=== PATIENT | female | born 1975 | race African-American/Black ===

== ENCOUNTER 2016-07-15 05:29 | Observation (INO) | payer OTHER ==
--- NOTE | ~2016-07-15 | A ---
[facility] Nutrition Therapy DATE: 07/16/16 Patient: OFELIA CAGE Physician: MORCAR Address: [address] [place] [address] Room/Bed: [address] [place] [address], Zip: [place] [address] Admit Date: 07/15/16 Date of : [birth year] Height: 5 5 Weight: 111 50.6 NUTRITIONAL ASSESSMENT: REASON: LOW BMI PT IS 40 Y.O. FEMALE ADMITTED FOR STOMACH PAIN AFTER GALLBLADDER SURGERY PMH: RECENT CHOLECYSTECTOMY, SEIZURE DISORDER, DRUG ABUSE Anthropometrics: 5'5", WT: 110# (PER PT) (50 KG), BMI: 18.3, 88%IBW Labs: K+:3.0, CA: 7.6, ALB: 3.3, ALT: 8 Meds: PROTONIX, KCL, PHENERGAN I/O & Bowel function: 4185/1000 Skin Integrity: NO KNOWN SKIN ISSUES Estimated Nutrition Needs: INCREASED NUTRIENT NEEDS 2' WEIGHT LOSS NOTED, DECREASED PO INTAKE AND APPETITE, CURRENT CONDITION Assessment: CHART REVIEWED AND EVENTS NOTED. PT SEEN FOR LOW BMI. PT CONFIRMED DECREASED PO INTAKE 2' DECREASED APPETITE D/T N/V/D/ABD PAIN SINCE HER MOST RECENT CHOLECYSTECTOMY. PT REPORTS LOSING ~16# PAST 2-3 WEEKS/SEVERE WEIGHT LOSS NOTED! THIS RD ENCOURAGED SLOW GRADUAL PO INTAKE + SMALL FREQUENT MEALS + SUPPLEMENT INTAKE, PT AGREED TO ENSURE SHAKES BID, RD WILL ORDER. PT REPORTED NO DIET QUESTIONS AT THIS TIME. RD TO FOLLOW. SEE RECOMMENDATIONS BELOW. Dx: INADEQUATE NUTRIENT INTAKE R/T DX, CURRENT CONDITION, N/V/D AEB PT REPORT ABOVE, SEVERE 16# WEIGHT LOSS NOTED IN PAST 2-3 WEEKS. Intervention: 1. LOW FIBER DIET 2. ENSURE SHAKES BID Monitoring, Evaluation and Goals: 1. PO INTAKE; PROVIDE AND CONSUME ADEQUATE NUTRITION W/NO C/O N/V/D (PO>50%) 2. WEIGHTS; PREVENT FURTHER UNINTENTIONAL WEIGHT LOSS 3. LABS; WNL 4. GI; PROMOTE REGULAR GI FUNCTION MONITOR: -PO INTAKE/APPETITE -WEIGHTS [facility] Nutrition Therapy DATE: 07/16/16 Patient: OFELIA CAGE Physician: DARON Address: [address] [place] [address] Room/Bed: [address] [place] [address], Zip: [place] [address] Admit Date: 07/15/16 Date of : [birth year] Height: 5 5 Weight: 111 50.6 -SUPPLEMENT INTAKE Recommendations: 1. ORDER VANILLA ENSURE SHAKES BID W/MEALS 2. RECOMMEND TO ADD LOW FAT TO CURRENT DIET ORDER -ONCE N/V/D/ABD PAIN SUBSIDES, PLEASE ELIMINATE LOW FIBER OPTION 3. ENCOURAGE ADEQUATE KCAL, PROTEIN AND FLUID INTAKE RD WILL F/U PER PROTOCOL PT IS MODERATELY COMPROMISED Respectfully, BIBI PATEL MS, RD, LD [facility] cc: client file
--- NOTE | ~2016-07-15 | CR72 ---
[facility] A Service of [facility] & [facility] RADIOLOGY TEXT RESULTS PATIENT: OFELIA CAGE LOCATION: [facility] : [birth year] UNIT #: [id number] AGE: [address]: Elpidio Waggoner MD SEX: F ORDER DR: [id number] [facility] [address] [place], [place] [address] [id number] I MR#: [id number] Acc #: [id number] NAME: OFELIA CAGE : 1975 SEX: F STUDY DATE/TIME: 07/15/2016 05:26 [facility] 02692 STUDY DESCRIPTION: CR Chest Single View Portable Attending Physician: Elpidio Waggoner M.D. Ordering Physician: Katelyn Todd A.P.R.N. Primary Care Physician: [facility] MEDICAL IMAGING REPORT This report is preliminary unless electronic signature is present EXAM Portable chest, 07/15 at 05:26. INDICATIONS Ongoing nausea with vomiting and diarrhea, worse over the last 2 days. Flu-like symptoms as well. COMPARISON 07/05/2016 FINDINGS A single AP portable view of the chest shows both lungs to be clear. The heart is normal in size. The mediastinal contour is normal. No significant bone abnormalities are seen. IMPRESSION Normal portable chest. Dictated by... Kar Ugarte Jr., M.D. THIS IS AN ELECTRONICALLY VERIFIED REPORT Kar Ugarte Jr., M.D. at 07/18/2016 7:21 AM DAPHNE/megan TD: 07/15/2016 08:45 JOB #: [id number] MEDICAL IMAGING REPORT COPY
--- NOTE | ~2016-07-15 | US6 ---
[facility] A Service of [facility] RADIOLOGY TEXT RESULTS PATIENT: OFELIA CAGE LOCATION: C3A 332-01 : 79 UNIT #: [id number] AGE: [address]: Elpidio Waggoner MD SEX: F ORDER DR: [id number] [facility] [address] [place], [place] [address] [id number] I MR#: [id number] Acc #: [id number] NAME: OFELIA CAGE : 1975 SEX: F STUDY DATE/TIME: 07/15/2016 10:42 UNIT: [facility] ROOM: 66856 STUDY DESCRIPTION: US Abdominal Limited Attending Physician: Elpidio Waggoner M.D. Ordering Physician: Elpidio Waggoner M.D. Primary Care Physician: [facility] MEDICAL IMAGING REPORT This report is preliminary unless electronic signature is present EXAM Right upper quadrant abdominal ultrasound. INDICATIONS Unexplained weight loss of 20 pounds over the past 3 weeks. Previous cholecystectomy. Generalized abdominal pain, nausea and vomiting for the past 3 weeks. PROCEDURE Ambrocio-scale and Doppler imaging, right upper quadrant of the abdomen. COMPARISON STUDIES Comparison CT from 07/05/2016. FINDINGS Visualized portions of the pancreas are unremarkable. Right kidney measures 11.6 cm. Common duct measures 8 mm. Previous cholecystectomy. No liver lesion on submitted images. IMPRESSION Previous cholecystectomy. Common duct measures up to 8 mm, probably representing physiologic change. It is similar to the previous CT. Correlate with laboratory values. Dictated by... Mynor Sweet M.D. THIS IS AN ELECTRONICALLY VERIFIED REPORT Mynor Sweet M.D. at 07/16/2016 3:04 PM MAYAD/domenic TD: 07/15/2016 13:49 [facility] A Service [facility] RADIOLOGY TEXT RESULTS PATIENT: OFELIA CAGE LOCATION: [facility] 332-01 : 79 UNIT #: [id number] AGE: [address]: Elpidio Waggoner MD SEX: F ORDER DR: JOB #: [id number] MEDICAL IMAGING REPORT COPY
--- NOTE | ~2016-07-15 | DS ---
Unit #: [id number] #: [id number] Patient: OFELIA CAGE [id number] [address] [place], [place] [address] [id number] I MR#: [id number] NAME: OFELIA CAGE ROOM: 332 Age: 40 Sex: F Admission Date: 07/15/2016 : 1975 Discharge Date: 07/17/2016 Attending Physician: Elpidio Waggoner M.D. Primary Care Phys[facility] DISCHARGE SUMMARY FINAL DIAGNOSES 1. Acute kidney injury secondary to intractable nausea, vomiting, and diarrhea. 2. Right upper quadrant pain. 3. Hypokalemia. 4. Bronchitis. SECONDARY DIAGNOSIS Seizure disorder. HOSPITAL COURSE Tfednn-pphyn-dhay-old female, who recently had a cholecystectomy about two weeks ago, presents with nausea, vomiting, and had some diarrhea. Her creatinine was up to about 5 when she was admitted. She was admitted and rehydrated. She was found to be hypokalemic and this was also repleted. Her pain symptomatology seemed to be out of proportion; however, a CAT scan of the abdomen and pelvis recently done showed postcholecystectomy changes and CTA also was negative for pulmonary embolism. The patient, during her hospital stay, continued to remain mainly off the floor smoking and did not seem to be quite uncomfortable. Dilaudid IV was continued and she was transferred to oral pain medication and to follow up with primary care physician as an outpatient. She will be discharged in stable condition for outpatient followup. She states that she has had a one week follow up with her surgeons. She needs to go back to her surgeons and her primary care physician. Potassium prior to discharge was 3.4. She did receive 14 mEq of potassium chloride prior to discharge. MEDICATIONS ON DISCHARGE Include: 1. Humibid LA 600 mg p.o. b.i.d. 2. Zithromax 250 mg p.o. daily 3. Carmel 5/325 one tablet p.o. b.i.d. p.r.n., #15 pills 4. Keppra 500 mg p.o. daily, her home dose 5. Promethazine 25 mg p.o. t.i.d. p.r.n., #6 pills She will be discharged in stable condition. Time spent coordinating discharge was about 27 minutes. She will follow up with her primary care physician in the next 3 to 5 days. She Unit #: [id number] #: [id number] Patient: OFELIA CAGE verbalized understanding. Dictated by... Marycarmen Tran TD: 07/17/2016 15:18 JOB #: [id number] DISCHARGE SUMMARY X Ashwini Garcia MD X DISCHARGE SUMMARY
--- NOTE | ~2016-07-15 | HP ---
Unit #: [id number] #: [id number] Patient: OFELIA CAGE [id number] [facility] [address] [facility]. [place], [place] [address] [id number] I MR#: [id number] NAME: OFELIA CAGE ROOM: 332 Age: 40 Sex: F Admission Date: 07/15/2016 : 1975 Attending Physician: Elpidio Waggoner M.D. Primary Care Physician: [facility] HISTORY AND PHYSICAL CHIEF COMPLAINT Nausea and vomiting. HISTORY OF PRESENT ILLNESS The patient is a 40-year-old female who underwent recent cholecystectomy, who presents to [facility] emergency department with nausea and vomiting. It has been going on for well over a week at this time. The patient states that she is diffusely weak and unable to ambulate at this time. She states that she is having profuse diarrhea as well. She also complains of severe abdominal pain and decreased urine output. PAST MEDICAL HISTORY Bronchitis and seizure disorder. PAST SURGICAL HISTORY Tubal ligation, carpal tunnel release and recent cholecystectomy. HOME MEDICATIONS Keppra. ALLERGIES Toradol, nonsteroidals, clindamycin. FAMILY HISTORY No significant past family history. SOCIAL HISTORY Patient smokes half a pack a day, denies alcohol use, admits to marijuana use and her tox screen was positive for cocaine. REVIEW OF SYSTEMS A 10-point review of systems was obtained, negative except as per HPI. PHYSICAL EXAMINATION VITAL SIGNS: Temperature 97.5. Pulse 129. Blood pressure 101/76. GENERAL: This is a 40-year-old female in no acute distress who appears stated age. HEENT: Pupils are equally round. Extraocular movements intact. Mucous membranes dry. NECK: Supple. No JVD. No lymphadenopathy. CARDIAC: Regular rate and rhythm. No murmurs, gallops or rubs. LUNGS: Clear to auscultation bilaterally. Unit #: [id number] #: [id number] Patient: OFELIA CAGE ABDOMEN: Diffusely tender to palpation. Nondistended. Soft. No hepatosplenomegaly. EXTREMITIES: No cyanosis, clubbing or edema. They are warm and dry. PSYCHIATRIC: Alert and oriented x3. Affect is appropriate. NEUROLOGICAL: Cranial nerves II-XII intact grossly. The patient moves all extremities equally and with purpose. SKIN: No rashes, bruises or ulcers. MUSCULOSKELETAL: No muscle or joint pain. No muscle or joint swelling. DIAGNOSTIC STUDIES LABORATORY: The patient's creatinine is 5, up from 1.0 10 days ago, BUN is 63, bicarb is 15, white count is 16 which is up from 13 10 days ago. Tox screen positive for cocaine, marijuana and TCAs. UA shows 3+ leukocyte esterase, 25 to 50 red blood cells, 50 to 100 white cells, 2+ bacteria. IMAGING: Chest x-ray is within normal limits. ASSESSMENT AND PLAN 1. Acute kidney injury, likely secondary to the patient's diffuse nausea and vomiting and diarrhea: The patient is being aggressively volume resuscitated and repeat BMP will be checked later this afternoon. She may ultimately require renal consult if her creatinine does not improve with fluid however I anticipate it will. 2. Urinary tract infection: Started the patient on Rocephin. This could be the cause of her nausea and vomiting. 3. Diarrhea: I ordered a stool for C. diff. 4. Drug abuse: The patient's urine is positive for cocaine, marijuana and TCAs. 5. Pain: I have started the patient on Dilaudid protocol. She does have a history of narcotic use. BEVERLY revel that she was taking hydrocodone regularly until approximately January/February of last year. 6. Prophylaxis: The patient has been started on SCDs. Dictated by Elpidio Waggoner M.D. NADINE/yahaira TD: 07/15/2016 18:00 JOB #: [id number] HISTORY AND PHYSICAL X Elpidio Waggoner MD X HISTORY AND PHYSICAL
--- NOTE | ~2016-07-15 | EKG ---
PATIENT: OFELIA CAGE UNIT #: [id number] Ventricular Rate: 109 BPM Atrial Rate: 109 BPM P-R Interval: 132 ms QRS Duration: 80 ms Q-T Interval: 312 ms QTC Calculation(Bezet): 420 ms P [place]: 78 degrees Calculated R [place]: 61 degrees Calculated T [place]: 67 degrees Diagnosis Line: Sinus tachycardia Diagnosis Line: Biatrial enlargement Diagnosis Line: Nonspecific T wave abnormality Diagnosis Line: Abnormal ECG Diagnosis Line: When compared with ECG of 05-JUL-2016 08:50, Diagnosis Line: QT has shortened Diagnosis Line: Confirmed by BRIANDA REA MD ([id number]) on 07/15/2016 Diagnosis Line: 5:26:30 PM INTERPRETING MD: RONA BROWN
[~2016-07-15 05:29] MED LIST: BACTRIM DS TABL1 TA1 PO; DILANTIN PO; NORCO 10-325 TA1 TAB PO; PERCOCET10 PO; PREDNISONE PO; VICODIN PO; ZITHROMAX PO
[2016-07-15 05:42] LABS: BASOPHIL% 0.2 % (0-2.5); EOSINOPHIL% 0.1 % (0.0-7.0); HEMATOCRIT 46.9 % (35.0-45.0); HEMOGLOBIN 15.8 gm/dL (12.0-16.0); LYMPHOCYTE# 2.5 X10e3 (1.0-3.5); MEAN CELL VOLUME 95.7 FL (83-96); MEAN CORPUSCULAR HEMOGLOBIN 32.3 PG (28-34); MEAN CORPUSCULAR HGB CONC 33.7 g/dL (30-36); MEAN PLATELET VOLUME 8.5 FL (6.5-11.5); MONOCYTE# 0.9 X10e3 (0-1.0); MONOCYTE% 5.5 % (3.0-12.0); NEUTROPHIL% 79.2 % (40-75); PLATELET COUNT 355 X10e3 (140-420); RED BLOOD COUNT 4.91 X10e (3.90-5.30); RED CELL DISTRIBUTION WIDTH 14.2 % (11.0-15.5); WHITE BLOOD COUNT 16.3 X10e3 (4.0-10.5)
[2016-07-15 05:49] LABS: POC - CKMB 1.5 ng/mL (0.0-7.9); POC - TROPONIN <0.05 ng/mL (<=0.05)
[2016-07-15 06:30] LABS: DIFF IND YES
[2016-07-15 06:35] LABS: PLATELET ESTIMATE NORMAL (NORMAL); SMUDGE CELLS 8 /100
[2016-07-15 06:36] LABS: TEAR DROP CELLS PRESENT
[2016-07-15 06:38] LABS: ALBUMIN SERUM 4.8 g/dL (3.5-5.0); BILIRUBIN, DIRECT 0.1 mg/dL (0.0-0.2); BILIRUBIN,INDIRECT 0.3 mg/dL (0.0-0.9); BILIRUBIN,TOTAL 0.4 mg/dL (0.2-2.0); BUN/CREATININE RATIO 12.6; CALCIUM SERUM 10.1 mg/dL (8.4-10.2); GLOM FILT RATE Estimated 12.5 mL/min (>60); POTASSIUM 3.9 mmol/L (3.5-5.1); PROTEIN TOTAL SERUM 8.3 g/dL (6.0-8.3)
[2016-07-15 07:15] LABS: URINE SOURCE CLEAN CATCH
[2016-07-15 07:30] LABS: URINE APPEARANCE TURBID; URINE BILIRUBIN NEG (NEG); URINE BLOOD 3+ (NEG); URINE COLOR YELLOW; URINE GLUCOSE NEG (NEG); URINE KETONE NEG (NEG); URINE LEUKOCYTE ESTERASE 3+ (NEG); URINE NITRATE NEG (NEG); URINE PROTEIN 2+ (NEG); URINE SPECIFIC GRAVITY 1.027 (1.003-1.035); URINE UROBILINOGEN 0.2 MG/DL (NEG)
[2016-07-15 07:33] LABS: CULTURE INDICATED? YES; URBCS1 AUWI 25-50 /[HPF] (0-2); URINE BACTERIA AUWI 2+ (NEGATIVE); URINE SQUAMOUS EPITHELIAL CELL MOD /[HPF]
[2016-07-15 07:53] LABS: UWBCS1 AUWI 50-100 (0-5)
[2016-07-15 07:57] LABS: AMPHETAMINE NEG (NEG); BARBITURATES NEG (NEG); BENZODIAZEPINES NEG (NEG); COCAINE POS (NEG); MARIJUANA POS (NEG); OPIATES NEG (NEG); TRICYCLIC ANTIDEPRESSANTS POS (NEG); U METHADONE NEG (NEG)
[2016-07-15] MEDS ORDERED: KEPPRA500 M2 PO (09:23)
[2016-07-15 18:18] LABS: BUN/CREATININE RATIO 18.8; CALCIUM SERUM 7.8 mg/dL (8.4-10.2); CREATININE SERUM 2.5 mg/dL (0.6-1.4); GLOM FILT RATE Estimated 27.7 mL/min (>60); POTASSIUM 3.3 mmol/L (3.5-5.1)
[2016-07-16 05:21] LABS: URINE SOURCE CLEAN CATCH
[2016-07-16 05:41] LABS: URINE APPEARANCE CLEAR; URINE BILIRUBIN NEG (NEG); URINE BLOOD 3+ (NEG); URINE COLOR YELLOW; URINE GLUCOSE NEG (NEG); URINE KETONE NEG (NEG); URINE LEUKOCYTE ESTERASE 3+ (NEG); URINE NITRATE NEG (NEG); URINE PH 6.5 (5-8); URINE PROTEIN NEG (NEG); URINE SPECIFIC GRAVITY 1.009 (1.003-1.035); URINE UROBILINOGEN 0.2 MG/DL (NEG)
[2016-07-16 05:45] LABS: U HYALINE CASTS AUWI 0-2 /[LPF]; URINE BACTERIA AUWI NEG (NEGATIVE); URINE SQUAMOUS EPITHELIAL CELL NONE SEEN /[HPF]
[2016-07-16 07:28] LABS: BASOPHIL% 0.5 % (0-2.5); EOSINOPHIL# 0.1 X10e3 (0-0.7); EOSINOPHIL% 1.3 % (0.0-7.0); HEMATOCRIT 29.9 % (35.0-45.0); LYMPHOCYTE# 3.6 X10e3 (1.0-3.5); LYMPHOCYTE% 35.7 % (17.0-45.0); MEAN CELL VOLUME 95.9 FL (83-96); MEAN CORPUSCULAR HEMOGLOBIN 33.2 PG (28-34); MEAN CORPUSCULAR HGB CONC 34.6 g/dL (30-36); MEAN PLATELET VOLUME 7.9 FL (6.5-11.5); MONOCYTE# 0.6 X10e3 (0-1.0); MONOCYTE% 6.3 % (3.0-12.0); NEUTROPHIL# 5.6 X10e3 (1.5-7.1); NEUTROPHIL% 56.2 % (40-75); PLATELET COUNT 261 X10e3 (140-420); RED BLOOD COUNT 3.12 X10e (3.90-5.30); RED CELL DISTRIBUTION WIDTH 13.8 % (11.0-15.5); WHITE BLOOD COUNT 9.9 X10e3 (4.0-10.5)
[2016-07-16 07:57] LABS: ALBUMIN SERUM 3.3 g/dL (3.5-5.0); ALKALINE PHOSPHATASE 63 U/L (32-92); ALT (SGPT) 8 U/L (10-40); AST (SGOT) 12 U/L (10-42); BILIRUBIN,TOTAL 0.5 mg/dL (0.2-2.0); BLOOD UREA NITROGEN 23 mg/dL (9-23); CALCIUM SERUM 7.6 mg/dL (8.4-10.2); CARBON DIOXIDE 17 mmol/L (22-31); CHLORIDE 113 mmol/L (100-111); CREATININE SERUM 1.1 mg/dL (0.6-1.4); GLOM FILT RATE Estimated ABOVE60 mL/min (>60); GLUCOSE FASTING 100 mg/dL (70-110); PROTEIN TOTAL SERUM 5.5 g/dL (6.0-8.3); SODIUM 135 mmol/L (135-145)
[2016-07-16 08:25] LABS: DIFF IND NO; HEMOGLOBIN 10.3 gm/dL (12.0-16.0)
[2016-07-17 03:40] LABS: HEMATOCRIT 28.2 % (35.0-45.0); HEMOGLOBIN 9.6 gm/dL (12.0-16.0); MEAN CELL VOLUME 96.7 FL (83-96); MEAN CORPUSCULAR HGB CONC 34.2 g/dL (30-36); MEAN PLATELET VOLUME 7.4 FL (6.5-11.5); RED BLOOD COUNT 2.91 X10e (3.90-5.30); RED CELL DISTRIBUTION WIDTH 13.7 % (11.0-15.5); WHITE BLOOD COUNT 11.1 X10e3 (4.0-10.5)
[2016-07-17 04:25] LABS: BLOOD UREA NITROGEN 10 mg/dL (9-23); BUN/CREATININE RATIO 14.28; CALCIUM SERUM 7.8 mg/dL (8.4-10.2); CARBON DIOXIDE 17 mmol/L (22-31); CHLORIDE 116 mmol/L (100-111); CREATININE SERUM 0.7 mg/dL (0.6-1.4); GLOM FILT RATE Estimated ABOVE60 mL/min (>60); GLUCOSE FASTING 104 mg/dL (70-110); POTASSIUM 3.4 mmol/L (3.5-5.1); SODIUM 135 mmol/L (135-145)
[2016-07-17] MEDS ORDERED: HUMIBID-LA600 MG PO (10:07)
[2016-07-17] MEDS ORDERED: AZITHROMYCIN250 MG PO (10:08)
[2016-07-17] MEDS ORDERED: PHENERGAN25 M1 PO (10:10)
[2016-07-17] MEDS ORDERED: HYDROCODONE/APA1 T15 PO (10:19)
== END 2016-07-17 10:25 | disposition home or self-care (01) ==
LOC: CED 05:29 → CEDOF 06:53 → C3A PCU 15:58
PROVIDERS: Emergency Medicine; Family Medicine; Internal Medicine; Nurse Practitioner
DX: N17.9 Acute kidney failure, unspecified (principal); R11.2 Nausea with vomiting, unspecified; R19.7 Diarrhea, unspecified; R10.11 Right upper quadrant pain; E87.6 Hypokalemia; J40 Bronchitis, not specified as acute or chronic; F17.200 Nicotine dependence, unspecified, uncomplicated; F14.10 Cocaine abuse, uncomplicated; F12.10 Cannabis abuse, uncomplicated; Z90.49 Acquired absence of other specified parts of digestive tract
CPT/HCPCS: 36415; 71010; 76705; 80048; 80053; 80076; 80307; 81003; 82150; 82553; 83605; 83690; 83735; 84132; 84484; 85025; 85027; 87086; 87088; 87186; 93005; 94760; 96361; 96374; 96375; 96376; 99285; G0378; J0696; J1170; J1953; J2270; J2405; J2550; J3475

== ENCOUNTER 2016-08-23 18:02 | Inpatient (IN) | payer OTHER ==
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
--- NOTE | ~2016-08-23 | PN ---
Unit #: [id number] #: [id number] Patient: OFELIA CAGE [id number] [facility] [address] [place] [address] [id number] MR#: [id number] NAME: OFELIA CAGE ROOM: [facility] Age: 40 Sex: F Admission Date: 08/23/2016 : 1975 Attending Physician: Shaka Fischer M.D. Admitting Physician: Shaka Fischer M.D. Primary Care Physician: Primary Care Physician Kathy APARICIO NOTES DATE 08/27/2016 DISCUSSION Ms. Cage is 40-year-old female who was seen today and chart was reviewed and case was discussed with the staff. She has been anxious, withdrawn and rather seclusive to herself. Meanwhile, she has been cooperative with treatment recommendations as she has been taking the medications and tolerating them fairly well with no reported side effects though has been describing herself significant distress or discomfort and still having withdrawal symptoms and unable to function and get out and participate in treatment related activities. MENTAL STATUS EXAMINATION Young female who was casually dressed with fair personal hygiene, appears to be in no acute distress or discomfort. She was awake and alert with impaired attention and concentration. Her mood was anxious with congruent affect. Her speech was slow and restricted in content. Her thought processes were disorganized with some looseness of associations. Her insight and judgement remains significantly impaired. TREATMENT PLAN 1. We will continue her on her current medications and treatment protocol. We will monitor her response to the medication and make further adjustments as needed. 2. We will continue to follow up. Dictated by... Marycarmen Pizano/calista TD: 08/29/2016 00:13 JOB #: [id number] Unit #: [id number] #: [id number] Patient: OFELIA CAGE PROGRESS NOTES Page 1 of 1 X Shaka Fischer MD PROGRESS NOTE
--- NOTE | ~2016-08-23 | PN ---
Unit #: [id number] #: [id number] Patient: OFELIA CAGE [id number] [facility] [address] [place] [address] [id number] MR#: [id number] NAME: OFELIA CAGE ROOM: [facility] Age: 40 Sex: F Admission Date: 08/23/2016 : 1975 Attending Physician: Shaka Fischer M.D. Admitting Physician: Shaka Fischer M.D. Primary Care Physician: Primary Care Physician Kathy LAND PROGRESS NOTES DATE 08/29/2016 DISCUSSION Ms. Cage is a 40-year-old female who was seen today and chart was reviewed and case was discussed with the staff. She remains anxious, withdrawn, seclusive to herself not feeling good and has not been able to function and has not been able to get comfortable. Meanwhile, she has been taking medications and tolerating them fairly well with no reported side effects. MENTAL STATUS EXAMINATION Young female who was casually dressed with fair personal hygiene and appears to be in no acute distress or discomfort. She was awake and alert with impaired attention and concentration. Her mood was anxious with congruent affect. She denies any suicidal or homicidal ideations. Her insight and judgement remains slightly impaired. TREATMENT PLAN 1. Will continue on current medications and treatment protocol. Will monitor her response to the medications and make further adjustments as needed. 2. Will continue to follow up. Dictated by... Marycarmen Pizano/mir TD: 08/30/2016 16:45 JOB #: [id number] Unit #: [id number] #: [id number] Patient: OFELIA CAGE GASTONVERÓNICA PROGRESS NOTES Page 1 of 1 X Shaka Fischer MD PROGRESS NOTE
--- NOTE | ~2016-08-23 | PN ---
Unit #: [id number] #: [id number] Patient: OFELIA CAGE [id number] [facility] [address] [place] [address] [id number] MR#: [id number] NAME: OFELIA CAGE ROOM: [facility] Age: 40 Sex: F Admission Date: 08/23/2016 : 1975 Attending Physician: Shaka Fischer M.D. Admitting Physician: Shaka Fischer M.D. Primary Care Physician: Primary Care Physician Kathy LAND PROGRESS NOTES DATE 08/26/2016 DISCUSSION Ms. Cage is a 40-year-old female who was seen today and chart was reviewed and case was discussed with the staff. She has been anxious, withdrawn and rather seclusive to herself. Meanwhile, she has been cooperative with treatment recommendations and has been taking medications and tolerating them fairly well with no reported side effects. MENTAL STATUS EXAMINATION Young female who was casually dressed with fair personal hygiene and appears to be in slight distress and discomfort. She was awake and alert with impaired attention and concentration. Her mood was anxious with congruent affect. Her speech is slow and restricted in content. She denies any suicidal or homicidal ideation. Her insight and judgement remains slightly impaired. TREATMENT PLAN 1. Will continue on current medications and treatment protocol. Will monitor her response to the medications and make further adjustments as needed. 2. Will continue to follow up. Dictated by... Marycarmen Pizano/mir TD: 08/26/2016 19:37 JOB #: [id number] Unit #: [id number] #: [id number] Patient: OFELIA CAGE PROGRESS NOTES Page 1 of 1 X Shaka Fischer MD X PROGRESS NOTE
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
--- NOTE | ~2016-08-23 | PN ---
Unit #: [id number] #: [id number] Patient: OFELIA CAGE [id number] [facility] [address] [place] [address] [id number] I MR#: [id number] NAME: OFELIA CAGE ROOM: [facility] Age: 40 Sex: F Admission Date: 08/23/2016 : 1975 Attending Physician: Shaka Fischer M.D. Admitting Physician: Shaka Fischer M.D. Primary Care Physician: Primary Care Physician Kathy APARICIO NOTES DATE OF SERVICE 08/30/2016 DISCUSSION Ms. Cage is a 40-year-old female who was seen today. Chart was reviewed and case was discussed with the staff. She has been anxious, withdrawn, and rather seclusive to herself. Meanwhile, she has been cooperative with treatment recommendations and has been taking the medications and tolerating them fairly well with no reported side effects. MENTAL STATUS EXAMINATION Young female who is casually dressed with fair personal hygiene, appears to be in no acute distress or discomfort. The patient was awake and alert on interaction with impaired attention and concentration. Her mood is anxious with a congruent affect. Speech is slow and restricted in content. Her thought processes were disorganize with some looseness of associations. Her insight and judgment remain slightly impaired. TREATMENT PLAN 1. We will continue her on her current treatment protocol. We will monitor her response to the medications and make further adjustments as needed. 2. We will continue to follow up. Dictated by... Marycarmen Pizano/veronicag TD: 08/31/2016 11:15 JOB #: [id number] Unit #: [id number] #: [id number] Patient: OFELIA CAGE PROGRESS NOTES Page 1 of 1 X Shaka Fischer MD PROGRESS NOTE
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
--- NOTE | ~2016-08-23 | PN ---
Unit #: [id number] #: [id number] Patient: OFELIA CAGE [id number] [facility] [address] [place] [address] [id number] I MR#: [id number] NAME: OFELIA CAGE ROOM: [facility] Age: 40 Sex: F Admission Date: 08/23/2016 : 1975 Attending Physician: Shaka Fischer M.D. Admitting Physician: Shaka Fischer M.D. Primary Care Physician: Primary Care Physician Kathy LAND PROGRESS NOTES DATE 08/28/2016 DISCUSSION Ms. Cage is a 40-year-old female who was seen today and chart was reviewed and case was discussed with the staff. She has been anxious, withdrawn and rather seclusive to herself. Meanwhile, she has been cooperative with treatment recommendations as she has been taking the medications and tolerating them fairly well with no reported side effects. MENTAL STATUS EXAMINATION Young female who was casually dressed with fair personal hygiene, appears to be in distress or discomfort. She was awake and alert with impaired attention and concentration. Her mood was anxious with congruent affect. She denies any suicidal or homicidal ideations. Also, denies any auditory or visual hallucinations. Her insight and judgement remains slightly impaired. TREATMENT PLAN 1. We will continue her on her current medications and treatment protocol. We will monitor her response and make further adjustments as needed. 2. We will continue to follow up. Dictated by... Marycarmen Pizano/calista TD: 08/29/2016 21:24 JOB #: [id number] Unit #: [id number] #: [id number] Patient: OFELIA CAGE SHANDA PROGRESS NOTES Page 1 of 1 X Shaka Fischer MD PROGRESS NOTE
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
--- NOTE | ~2016-08-23 | DS ---
Unit #: [id number] #: [id number] Patient: OFELIA RIDER [id number] [facility] [address] [place] [address] [id number] MR#: [id number] NAME: OFELIA RIDER ROOM: [facility] Age: 40 Sex: F Admission Date: 08/23/2016 : 1975 Discharge Date: 08/31/2016 Attending Physician: Shaka Fischer M.D. DISCHARGE SUMMARY IDENTIFYING DATA Ms. Rider is a 40-year-old single female, who is a resident of [place], [place] and was self-referred to the hospital on a voluntary basis. DISCHARGE DIAGNOSES Psychiatric: Major depressive disorder, recurrent, moderate, without psychotic features; opioid dependence, moderate and acute withdrawals. Medical: None. Stressors: Moderate psychosocial stressors. HISTORY OF PRESENT ILLNESS Please see initial psychiatric evaluation for details. PAST PSYCHIATRIC HISTORY Please see initial psychiatric evaluation for details. PAST MEDICAL HISTORY Please see initial psychiatric evaluation for details. HOSPITAL COURSE The patient was admitted to the adult chemical dependency and psychiatric unit at [facility] moris Noe and was oriented to the hospital environment. Routine p.r.n. medications were initiated, and she was started back on her home medications and medications were adjusted and she was closely monitored. She was taking the medications regularly and was tolerating them fairly well with no reported side effects and was able to come out of the detox without any complications and was wanting to go home and was denying any suicidal ideations, intent, or plan and as such, it was decided that she will be discharged home and will continue treatment on an outpatient basis. DISCHARGE MEDICATIONS None. DISCHARGE CONDITION Stable. PROGNOSIS Fair. Dictated by... Shaka Fischer M.D. Unit #: [id number] #: [id number] Patient: OFELIA RIDER IAA/modl TD: 08/31/2016 07:18 JOB #: [id number] DISCHARGE SUMMARY Page 1 of 1 X Shaka Fischer MD X DISCHARGE SUMMARY
[~2016-08-23 18:02] MED LIST changes: +AZITHROMYCIN250 MG PO; +HUMIBID-LA600 MG PO; +HYDROCODONE/APA1 T15 PO; +KEPPRA500 M2 PO; +PHENERGAN25 M1 PO
[2016-08-24 09:38] LABS: BASOPHIL# 0.1 X10e3 (0-0.3); BASOPHIL% 0.5 % (0-2.5); EOSINOPHIL# 0.2 X10e3 (0-0.7); EOSINOPHIL% 1.8 % (0.0-7.0); HEMATOCRIT 32.2 % (35.0-45.0); HEMOGLOBIN 10.6 gm/dL (12.0-16.0); LYMPHOCYTE# 3.3 X10e3 (1.0-3.5); LYMPHOCYTE% 33.2 % (17.0-45.0); MEAN CELL VOLUME 100.2 FL (83-96); MEAN CORPUSCULAR HEMOGLOBIN 33.1 PG (28-34); MEAN PLATELET VOLUME 8.3 FL (6.5-11.5); MONOCYTE# 0.6 X10e3 (0-1.0); NEUTROPHIL# 5.8 X10e3 (1.5-7.1); NEUTROPHIL% 58.5 % (40-75); PLATELET COUNT 298 X10e3 (140-420); RED BLOOD COUNT 3.21 X10e (3.90-5.30); WHITE BLOOD COUNT 9.9 X10e3 (4.0-10.5)
[2016-08-24 09:42] LABS: DIFF IND NO
[2016-08-24 10:04] LABS: THYROID STIMULATING HORMONE 0.18 uIU/ml (0.34-5.60)
[2016-08-24 10:12] LABS: FREE THYROXIN (T4) 0.71 ng/dL (0.58-1.64)
[2016-08-24 10:59] LABS: ALBUMIN SERUM 3.7 g/dL (3.5-5.0); BILIRUBIN,TOTAL 0.7 mg/dL (0.2-2.0); BUN/CREATININE RATIO 11.42; CALCIUM SERUM 8.9 mg/dL (8.4-10.2); CREATININE SERUM 0.7 mg/dL (0.6-1.4); GLOM FILT RATE Estimated 127.4 mL/min (>60); POTASSIUM 3.5 mmol/L (3.5-5.1); PROTEIN TOTAL SERUM 5.7 g/dL (6.0-8.3)
[2016-08-26 09:44] LABS: URINE APPEARANCE CLEAR; URINE BILIRUBIN NEG (NEG); URINE BLOOD TRACE (NEG); URINE COLOR YELLOW; URINE GLUCOSE NEG (NEG); URINE KETONE NEG (NEG); URINE LEUKOCYTE ESTERASE TRACE (NEG); URINE NITRATE NEG (NEG); URINE PH 6.5 (5-8); URINE PROTEIN NEG (NEG); URINE SPECIFIC GRAVITY 1.004 (1.003-1.035); URINE UROBILINOGEN 0.2 MG/DL (NEG)
[2016-08-26 09:47] LABS: U HYALINE CASTS AUWI 0-2 /[LPF]; URINE BACTERIA AUWI NEG (NEGATIVE); URINE SQUAMOUS EPITHELIAL CELL NONE SEEN /[HPF]; UWBCS1 AUWI 0-2 (0-5)
[2016-08-26 10:11] LABS: AMPHETAMINE NEG (NEG); BARBITURATES NEG (NEG); BENZODIAZEPINES POS (NEG); COCAINE NEG (NEG); MARIJUANA POS (NEG); OPIATES NEG (NEG); TRICYCLIC ANTIDEPRESSANTS NEG (NEG); U METHADONE NEG (NEG)
== END 2016-08-31 09:45 | DRG 885 ==
LOC: P1E 18:02
PROVIDERS: Psychiatry & Neurology Psychiatry
PROC: HZ2ZZZZ Detoxification Services for Substance Abuse Treatment (ICD-10-PCS; principal; 2016-08-23)
DX: F33.1 Major depressive disorder, recurrent, moderate (principal); G40.909 Epilepsy, unspecified, not intractable, without status epilepticus; F11.23 Opioid dependence with withdrawal; J44.9 Chronic obstructive pulmonary disease, unspecified; Z88.5 Allergy status to narcotic agent; Z88.6 Allergy status to analgesic agent; Z88.1 Allergy status to other antibiotic agents; Z88.8 Allergy status to other drugs, medicaments and biological substances
CPT/HCPCS: 80053; 80307; 81003; 82947; 84439; 84443; 84703; 85025; 86592; 87070; 87205